=== PATIENT | female | born 1990 | race American Indian/Alaskan Native ===

== ENCOUNTER 2018-06-25 10:51 | Outpatient (CLI) | payer MEDICARE ==
[2018-06-25 11:18] VITALS: BP 112/54
[2018-06-25] MEDS ORDERED: LACTATED RINGERS 500 ML IV ONE (11:18)
[2018-06-25 11:48] LABS: Bacteria,Urine 1+ /HPF (Negative); Bilirubin,Urine NEG (Negative); Blood,Urine SM (Negative); Color,Urine Yellow (Yellow); Mucus,Urine FEW /HPF; Protein,Urine <15 mg/dL mg/dL (Negative); Urobilinogen,Urine < 2.0 mg/dL (<2.0)
[2018-06-25 12:17] LABS: Hematocrit 36.4 % (30.3-42.9); Hemoglobin 12.1 gm/dl (10.1-14.3); Mean Corpuscular HGB Conc 33 % (30-34); Mean Corpuscular Hemoglobin 31 pg (28-32); Mean Corpuscular Volume 92 fl (79-97); Platelet Count 180 K/mm3 (140-440); Red Blood Count 3.96 M/mm3 (3.65-5.03); Red Cell Distribution Width 13.4 % (13.2-15.2)
[2018-06-25 12:28] LABS: INR 0.96 (0.87-1.13); Partial Thromboplastin Time 26.6 Sec. (24.2-36.6)
--- NOTE | 2018-06-25 15:52 | Ultrasound Report ---
OB LIMITED INDICATION: Spotting. Evaluate for abruption. COMPARISON: None similar at this institution. TECHNIQUE: Transabdominal grayscale ultrasound with Doppler interrogation. Gestation: Garcia Position: Cephalic Amniotic Fluid: WNL (7-24 cm) JAYDEN = 16.5 cm Placenta: Anterior; no evidence of abruption. Placental Grade: 0 Heart Rate: 145 BPM Cervical length: 4.3 cm (Normal > 3 cm) CONCLUSION: Findings, as above.
== END 2018-06-25 12:13 | disposition home or self-care (01) ==
LOC: TRG 10:51
PROVIDERS: ATTEND Obstetrics & Gynecology
DX: O47.03 False labor before 37 completed weeks of gestation, third trimester (principal); Z3A.30 30 weeks gestation of pregnancy
CPT/HCPCS: 36415; 76815; 81001; 85027; 85384; 85610; 85730; 87210; J7120